=== PATIENT | male | born 2000 | race Caucasian/White ===

== ENCOUNTER 2023-06-23 11:14 | Emergency (ER) | payer OTHER ==
[~2023-06-23] VITALS: Ht 185.4 cm; Wt 84.8 kg
[2023-06-23] MEDS ORDERED: NS IV 1000 ML 1,000 ML IV SCH (13:15)
--- NOTE | 2023-06-23 13:16 | ED General ---
General Chief Complaint: Fever-Adult/Adol Stated Complaint: BODY ACHES | MUSCLE PAIN | SORE THROAT Nursing Triage Note: FEVER TODAY, HAS BEEN ILL FOR "23 DAYS" PATIENT STATES HE FEELS WORN DOWN AND IS UNABLE TO WORK OUT OR GO ON WALKS WITH HIS DOG. WAS SEEN AT [facility] LAST WEEK AND TODAY LAB RESULTS WERE FAXED AND GIVEN TO Source of Information: Patient Exam Limitations: No Limitations (ALANNA PRATHER APRN) History of Present Illness Date Seen by Provider: Jun 23, 2023 Time Seen by Provider: 13:06 Initial Comments 23-year-old male presents to the ER with complaint of being sick for a long time. States he has had symptoms for 3 weeks. He reports sore throat, fatigue, body aches, joint pain, fever, headache. He reports within the last 3 days he developed a cough. He denies any known sick contacts. Does report some neck pain, but no neck stiffness. He was seen at the [facility] on 06/04 and had negative COVID, flu, and strep testing. He was seen again on 06/14 and had a monotest that was negative and blood work completed. At that time his white count was 18.2. He reports that he was started on a Medrol Dosepak at that time. He reports he has finished this. He denies chest pain, shortness of air, abdominal pain, nausea, vomiting, diarrhea. He denies any skin complaints, denies rashes, denies dental pain. Does report mild rhinitis that started 3 days ago with the cough. Denies any known tick bites. (ALANNA PRATHER APRN) Allergies and Home Medications Allergies Coded Allergies: adhesive (Verified Allergy, Unknown, 06/23/23) amoxicillin (Verified Allergy, Unknown, 06/23/23) Patient Home Medication List Home Medication List Reviewed: Yes (ALANNA PRATHER APRN) Doxycycline Hyclate (Doxycycline Hyclate) 100 Mg Tablet, 100 MG PO BID Prescribed by: Alanna Hand on 06/23/23 1614 Review of Systems Review of Systems Constitutional: see HPI (ALANNA PRATHER APRN) Past Pwxmjoe-Efhjkx-Bubxkk Hx Patient Social History Tobacco Use?: No Use of E-Cig and/or Vaping dev: No Substance use?: No Alcohol Use?: Yes Alcohol type: Beer Alcohol Frequency: Once in a while Pt feels they are or have been: No (ALANNA PRATHER APRN) Immunizations Up To Date Influenza Vaccine Up-to-Date: No; Not Current First/Initial COVID19 Vaccinat: 1 SHOT (ALANNA PRATHER APRN) Past Medical History Surgery/Hospitalization HX: DENIES ORTHO (ALANNA PRATHER APRN) Physical Exam Vital Signs Vital Signs - First Documented 06/23/23 11:23 Temp 38.9 Pulse 114 Resp 20 B/P (MAP) 133/78 (96) Pulse Ox 95 O2 Delivery Room Air (JESS QUINTERO MD) Vital Signs Capillary Refill : Less Than 3 Seconds (ALANNA PARTHER APRN) Height, Weight, BMI Height: '" Weight: lbs. oz. kg; 24.00 BMI Method: General Appearance: No Apparent Distress, WD/WN HEENT: TMs Normal (Unable to visualize due to cerumen); No Tonsillar Exudate, No Tonsillar Enlargement; Other (Good dentition, no caries, no concern for abscess) Neck: Full Range of Motion, Normal Inspection, Supple Respiratory: Lungs Clear, Normal Breath Sounds, No Accessory Muscle Use, No Respiratory Distress Cardiovascular: Tachycardia Gastrointestinal: Normal Bowel Sounds, Non Tender, Soft Extremity: Normal Inspection, Normal Range of Motion Neurologic/Psychiatric: Alert, Normal Mood/Affect Skin: Normal Color, Warm/Dry (ALNANA PRATHER APRN) Focused Exam Lactate Level 06/23/23 12:49: Lactic Acid Level 1.23 (JESS QUINTERO MD) Lactic Acid Level Laboratory Tests Test 06/23/23 12:49 Lactic Acid Level 1.23 MMOL/L (0.50-2.00) (JESS QUINTERO MD) Progress/Results/Core Measures Suspected Sepsis SIRS Temperature: Pulse: 114 Respiratory Rate: 20 Laboratory Tests 06/23/23 12:49: White Blood Count 19.9H Blood Pressure 133 /78 Mean: 96 06/23/23 12:49: Lactic Acid Level 1.23 Laboratory Tests 06/23/23 12:49: Creatinine 0.85, Platelet Count 265, Total Bilirubin 0.8 (ALANNA PRATHER APRN) Results/Orders Lab Results Laboratory Tests Test 06/23/23 12:49 06/23/23 14:17 06/23/23 15:02 06/23/23 16:09 Range/Units White Blood Count 19.9 H 4.3-11.0 10^3/uL Red Blood Count 4.36 4.30-5.52 10^6/uL Hemoglobin 13.1 L 13.3-17.7 g/dL Hematocrit 40 40-54 % Mean Corpuscular Volume 92 80-99 fL Mean Corpuscular Hemoglobin 30 25-34 pg Mean Corpuscular Hemoglobin Concent 33 32-36 g/dL Red Cell Distribution Width 12.1 10.0-14.5 % Platelet Count 265 130-400 10^3/uL Mean Platelet Volume 9.1 9.0-12.2 fL Immature Granulocyte % (Auto) 1 % Neutrophils (%) (Auto) 89 H 42-75 % Lymphocytes (%) (Auto) 5 L 12-44 % Monocytes (%) (Auto) 5 0-12 % Eosinophils (%) (Auto) 0 0-10 % Basophils (%) (Auto) 0 0-10 % Neutrophils # (Auto) 17.8 H 1.8-7.8 10^3/uL Lymphocytes # (Auto) 0.9 L 1.0-4.0 10^3/uL Monocytes # (Auto) 0.9 0.0-1.0 10^3/uL Eosinophils # (Auto) 0.0 0.0-0.3 10^3/uL Basophils # (Auto) 0.1 0.0-0.1 10^3/uL Immature Granulocyte # (Auto) 0.2 H 0.0-0.1 10^3/uL Neutrophils % (Manual) 93 % Lymphocytes % (Manual) 2 % Monocytes % (Manual) 5 % Eosinophils % (Manual) 0 % Basophils % (Manual) 0 % Band Neutrophils 0 % Blood Morphology Comment NORMAL Sodium Level 135 135-145 MMOL/L Potassium Level 4.2 3.6-5.0 MMOL/L Chloride Level 98 98-107 MMOL/L Carbon Dioxide Level 26 21-32 MMOL/L Anion Gap 11 5-14 MMOL/L Blood Urea Nitrogen 10 7-18 MG/DL Creatinine 0.85 0.60-1.30 MG/DL Estimat Glomerular Filtration Rate 126 BUN/Creatinine Ratio 12 Glucose Level 97 70-105 MG/DL Lactic Acid Level 1.23 0.50-2.00 MMOL/L Calcium Level 9.3 8.5-10.1 MG/DL Corrected Calcium 9.7 8.5-10.1 MG/DL Magnesium Level 2.1 1.6-2.4 MG/DL Total Bilirubin 0.8 0.1-1.0 MG/DL Aspartate Amino Transf (AST/SGOT) 35 H 5-34 U/L Alanine Aminotransferase (ALT/SGPT) 40 0-55 U/L Alkaline Phosphatase 109 40-136 U/L C-Reactive Protein High Sensitivity 19.22 H 0.00-0.50 MG/DL Total Protein 7.6 6.4-8.2 GM/DL Albumin 3.5 3.2-4.5 GM/DL Rupali-Albright Virus Capsid Ag IgG Ab <10.0 0.0-17.9 U/mL Rupali-Albright Capsid Ag IgG Interp Negative Negative Rupali-Albright Virus Capsid Ag IgM Ab <10.0 0.0-35.9 U/mL Rupali-Albright Capsid Ag IgM Interp Negative Negative Rupali-Albright Virus Early Antigen Ab <5.0 0.0-8.9 U/mL Rupali-Albright Early Antigen Interp Negative Negative Rupali-Albright Nuclear Ag Ab Titer <3.0 0.0-17.9 U/mL Rupali-Albright Nuclear Ag IgG Interp Negative Negative Monoscreen NEGATIVE NEGATIVE Urine Color YELLOW Urine Clarity SLIGHTLY CLOUDY Urine pH 7.0 5-9 Urine Specific [place] 1.025 H 1.016-1.022 Urine Protein 2+ H NEGATIVE Urine Glucose (UA) NEGATIVE NEGATIVE Urine Ketones NEGATIVE NEGATIVE Urine Nitrite NEGATIVE NEGATIVE Urine Bilirubin NEGATIVE NEGATIVE Urine Urobilinogen 4.0 < = 1.0 MG/DL Urine Leukocyte Esterase NEGATIVE NEGATIVE Urine RBC (Auto) NEGATIVE NEGATIVE Urine RBC 0-2 /HPF Urine WBC RARE /HPF Urine Squamous Epithelial Cells RARE /HPF Urine Crystals NONE /LPF Urine Bacteria FEW H /HPF Urine Casts NONE /LPF Urine Mucus LARGE H /LPF Urine Culture Indicated NO Group A Streptococcus Screen Not Detected NotDetected Influenza Type A (RT-PCR) Not Detected Not Detecte Influenza Type B (RT-PCR) Not Detected Not Detecte SARS-CoV-2 RNA (RT-PCR) Not Detected Not Detecte Test 06/23/23 17:02 Range/Units (JESS QUINTERO MD) Vital Signs/I&O 06/23/23 06/23/23 06/23/23 11:23 15:00 16:56 Temp 38.9 36.9 Pulse 114 80 84 Resp 20 16 16 B/P (MAP) 133/78 (96) 112/65 111/66 (81) Pulse Ox 95 98 96 O2 Delivery Room Air 06/24/23 00:00 Intake Total 1000 ml Balance 1000 ml (JESS QUINTERO MD) Vital Signs/I&O Capillary Refill : Less Than 3 Seconds (ALANNA PRATHER APRN) Blood Pressure Mean: 96 Progress Note : Progress Note Patient seen and evaluated, resting comfortably in bed, no acute distress. Based on exam and symptoms, work-up initiated included CBC, CMP, magnesium, chest x-ray, Rupali-Albright virus panel. IV fluids and Toradol ordered. 1456 Labs and chest x-ray reviewed. CBC shows elevated WBC 19.9 possibly related to steroid Dosepak, but patient had an elevated white count prior to starting the steroid and his CRP is elevated at 19.22. Neutrophil percentage elevated at 89, lymphocytic percentage decreased 5. CMP grossly normal. Magnesium normal. Urinalysis negative for infection. Dupage negative. Chest x-ray negative for acute cardiopulmonary process. Strep, COVID, flu added on. 1511 strep negative. Waiting for results of COVID and flu swab. Lactic acid and blood cultures added on. 1656 lactic acid negative. COVID and flu negative. Patient's vital signs improved after IV fluids and Toradol. Results discussed with patient. At this time I am not certain what is causing the patient's symptoms and elevated white count and CRP. Will also order a tick panel and go ahead and treat patient with doxycycline to cover for tickborne illnesses as well as sinusitis. Patient is stable for discharge. All questions sought and answered. Patient instructed to follow-up with the [facility]. Discharge instructions and return precautions provided. (ALANNA PRTAHER APRN) Diagnostic Imaging Diagonstic Imaging: Xray Plain Films/CT/US/NM/MRI: chest Comments [facility] [place], [place] NAME: NOY GOODE [facility] REC#: [id number] PT STATUS: REG ER : 2000 PHYSICIAN: ALANNA PRATHER APRN ADMIT DATE: 06/23/23/ER Draft Date of Exam:06/23/23 CHEST 1 VIEW, AP/PA ONLY INDICATION: Chest pain COMPARISON: None FINDINGS: Single frontal view of the chest demonstrates normal heart size and pulmonary vascularity. The lungs are well aerated and clear. No large pleural effusion or pneumothorax is seen. The visualized osseous structures show no acute abnormalities. IMPRESSION: 1. No acute cardiopulmonary process. Dictated on workstation # [id number] Dict: 06/23/23 1344 Trans: 06/23/23 1346 [facility] [phone] Interpreted by: MIHIR CHOU MD Electronically signed by: (ALANNA PRATHER APRN) Departure Impression Primary Impression: Influenza-like symptoms Additional Impression: Fever, unknown origin Disposition: 01 HOME, SELF-CARE Condition: Stable Departure-Patient Inst. Decision time for Depature: 16:57 (ALANNA PRATHER APRN) Referrals: [facility] [place] (PCP/Family) Primary Care Physician Patient Instructions: Fever, Adult ED Add. Discharge Instructions: Complete full course of antibiotic as prescribed. You will receive a phone call if any of your tests are abnormal/positive. If you do not receive a phone call, you can assume your results were normal/negative. You may also call medical records if you would like to get the results. Follow-up with the [facility] if you are not improving. Return for any new, concerning, or worsening symptoms. All discharge instructions reviewed with patient and/or family. Voiced understanding. Scripts Doxycycline Hyclate (Doxycycline Hyclate) 100 Mg Tablet 100 MG PO BID for 14 Days, #28 TAB 0 Refills Prov: ALANNA PRATHER APRN 06/23/23 ATTENDING PHYSICIAN NOTE: I was physically present as attending physician in the emergency department during the care of this patient, but I was not directly involved in the decision making or delivery of care for this patient. (JESS QUINTERO MD) ALANNA PRATHER APRN Jun 23, 2023 13:16 JESS QUINTERO MD Jun 24, 2023 11:56
[2023-06-23 13:24] LABS: BASOPHILS # (AUTO) 0.1 10^3/uL (0.0-0.1); BASOPHILS % (AUTO) 0 % (0-10); EOSINOPHILS % (AUTO) 0 % (0-10); HEMATOCRIT 40 % (40-54); HEMOGLOBIN 13.1 g/dL (13.3-17.7); LYMPHOCYTES # (AUTO) 0.9 10^3/uL (1.0-4.0); LYMPHOCYTES % (AUTO) 5 % (12-44); MEAN CORPUSCULAR HEMOGLOBIN 30 pg (25-34); MEAN CORPUSCULAR HGB CONC 33 g/dL (32-36); MEAN CORPUSCULAR VOLUME 92 fL (80-99); MEAN PLATELET VOLUME 9.1 fL (9.0-12.2); MONOCYTES # (AUTO) 0.9 10^3/uL (0.0-1.0); MONOCYTES % (AUTO) 5 % (0-12); NEUTROPHILS # (AUTO) 17.8 10^3/uL (1.8-7.8); NEUTROPHILS % (AUTO) 89 % (42-75); PLATELET COUNT 265 10^3/uL (130-400); WHITE BLOOD COUNT 19.9 10^3/uL (4.3-11.0)
[2023-06-23] MEDS ORDERED: KETOROLAC INJ 15 MG/ML VIAL IVP ONE (13:30)
[2023-06-23 13:34] LABS: ALBUMIN 3.5 GM/DL (3.2-4.5)
[2023-06-23 13:35] LABS: POTASSIUM 4.2 MMOL/L (3.6-5.0)
[2023-06-23 13:36] LABS: CALCIUM 9.3 MG/DL (8.5-10.1)
[2023-06-23 13:37] LABS: TOTAL PROTEIN 7.6 GM/DL (6.4-8.2)
[2023-06-23 13:39] LABS: BILIRUBIN,TOTAL 0.8 MG/DL (0.1-1.0)
[2023-06-23 13:41] LABS: CREATININE SERUM 0.85 MG/DL (0.60-1.30)
[2023-06-23 13:44] LABS: MAGNESIUM 2.1 MG/DL (1.6-2.4)
--- NOTE | 2023-06-23 13:46 | Diagnostic Imaging Report ---
INDICATION: Chest pain COMPARISON: None FINDINGS: Single frontal view of the chest demonstrates normal heart size and pulmonary vascularity. The lungs are well aerated and clear. No large pleural effusion or pneumothorax is seen. The visualized osseous structures show no acute abnormalities. IMPRESSION: 1. No acute cardiopulmonary process. Dictated by: Dictated on workstation # [id number]
[2023-06-23 13:59] LABS: BAND NEUTROPHILS 0 %; LYMPHOCYTES % (MANUAL) 2 %; NEUTROPHILS % (MANUAL) 93 %
[2023-06-23 14:00] LABS: BASOPHILS % (MANUAL) 0 %; EOSINOPHILS % (MANUAL) 0 %; MONOCYTES % (MANUAL) 5 %; RBC MORPH NORMAL
[2023-06-23 14:39] LABS: BACTERIA,URINE FEW /HPF; BILIRUBIN,URINE NEGATIVE (NEGATIVE); CLARITY,URINE SLIGHTLY CLOUDY; COLOR,URINE YELLOW; GLUCOSE, URINE (UA) NEGATIVE (NEGATIVE); KETONES,URINE NEGATIVE (NEGATIVE); LEUKOCYTE ESTERASE ,URINE NEGATIVE (NEGATIVE); NITRITE,URINE NEGATIVE (NEGATIVE); PROTEIN,URINE 2+ (NEGATIVE); RBC,URINE 0-2 /HPF; SQUAMOUS EPITHELIAL CELL,UR RARE /HPF; WBC,URINE RARE /HPF
[2023-06-23 15:00] VITALS: BP 112/65
[2023-06-23] MEDS ORDERED: DOXY100T2 PO (16:59)
== END 2023-06-23 17:00 | disposition home or self-care (01) ==
LOC: ER 11:18
DX: R50.9 Fever, unspecified (principal); D72.829 Elevated white blood cell count, unspecified
CPT/HCPCS: 36415; 71045; 80053; 81000; 83605; 83735; 85007; 85027; 86141; 86308; 86618; 86663; 86664; 86665; 86666; 86668; 86757; 87040; 87070; 87430; 87636